=== PATIENT | female | born 1985 | race Caucasian/White ===

== ENCOUNTER 2016-04-11 07:53 | Emergency (ER) | payer OTHER ==
[~2016-04-11] VITALS: Ht 165.1 cm; Wt 95.6 kg
[2016-04-11 08:34] LABS: HEMATOCRIT 38.3 % (36.0-46.0); MCH 30.7 PG (29.0-34.0); MCV 87.6 FL (83-99); PLATELET COUNT 335 K/uL (156-360); RBC DIS.WIDTH-CV 12.1 % (11.8-14.6); RBC DIS.WIDTH-SD 37.7 % (39-53); RED BLOOD COUNT 4.37 M/uL (3.80-5.20); WHITE BLOOD COUNT 19.5 K/uL (4.1-10.2)
[2016-04-11 08:54] LABS: PTT 28.2 (25-32)
[2016-04-11 08:59] LABS: INFLUENZA A VIRAL ANTIGEN NEGATIVE; INFLUENZA B VIRAL ANTIGEN NEGATIVE
[2016-04-11 09:05] LABS: CHLORIDE 107 mEq/L (99-109); POTASSIUM 3.6 mEq/L (3.7-5.4); SODIUM 137 mEq/L (136-147)
[2016-04-11 09:07] LABS: GLUCOSE 114 mg/dL (70-99)
[2016-04-11 09:08] LABS: ANION GAP 11 MEQ/L (2-14)
[2016-04-11 09:09] LABS: TOTAL BILIRUBIN 0.6 mg/dL (0.0-1.0)
[2016-04-11 09:11] LABS: ALKALINE PHOSPHATASE 110 IU/L (3-129); GFR ESTIMATE (CALCULATED) > 59 mL/min/
[2016-04-11 09:12] LABS: UREA NITROGEN (BUN) 5 mg/dL (9-23)
[2016-04-11 09:14] LABS: LIPASE 11 U/L (1.0-51.0)
[2016-04-11] MEDS ORDERED: ZOFRAN ODT4 MG PO (10:33)
[2016-04-11 10:34] LABS: ADD MIUA? YES; BILIRUBIN NEGATIVE; BLOOD NEGATIVE; COLOR AMBER ((YELLOW)); GLUCOSE (STRIP) NEGATIVE; KETONES 80; LEUKOCYTES SMALL; NITRITE NEGATIVE; PROTEIN (STRIP) 30; SPECIFIC GRAVITY 1.027 (1.000-1.030); UROBILINOGEN 0.2 MG/DL (0.2-1.0)
[2016-04-11] MEDS ORDERED: CIPRO500 MG PO (10:47)
[2016-04-11 11:03] LABS: BACTERIA 1+ /HPF; EPITHELIAL CELLS 2+ /HPF; MUCUS 4+ /LPF; RED BLOOD CELLS 0-5 /HPF (0-5); UCUL ADDED? NO; WHITE BLOOD CELLS 0-5 /HPF (0-5)
[2016-04-11 11:17] VITALS: BP 125/79
== END 2016-04-11 11:20 | disposition home or self-care (01) ==
LOC: EME 07:53
PROVIDERS: Nurse Practitioner Family
DX: O21.9 Vomiting of pregnancy, unspecified (principal); O23.42 Unspecified infection of urinary tract in pregnancy, second trimester; O99.512 Diseases of the respiratory system complicating pregnancy, second trimester; J32.9 Chronic sinusitis, unspecified; J02.9 Acute pharyngitis, unspecified; O26.892 Other specified pregnancy related conditions, second trimester; R19.7 Diarrhea, unspecified; Z3A.15 15 weeks gestation of pregnancy
CPT/HCPCS: 80053; 81003; 83690; 85027; 85610; 85730; 87502; 99281; 99284; J2405; J7030

== ENCOUNTER 2016-09-18 01:52 | Inpatient (IN) | payer OTHER ==
[2016-09-18] VITALS (30 sets, daily range): BP systolic 88–145; BP diastolic 54–83
[~2016-09-18] VITALS: Ht 165.1 cm; Wt 98.0 kg
[~2016-09-18 01:52] MED LIST: CIPRO500 MG PO; ZOFRAN ODT4 MG PO
[2016-09-18 02:44] LABS: EOSINOPHIL (%) 0.6 % (0-5); EOSINOPHIL COUNT 0.1 K/uL (0-0.3); HEMATOCRIT 31.1 % (36.0-46.0); IMMATURE GRANULOCYTE (%) 0.6 % (0.0-0.7); IMMATURE GRANULOCYTE COUNT 0.1 K/uL; INSTRUMENT ABS NEUTROPHIL CT 7.2 K/uL; LYMPHOCYTE COUNT 2.1 K/uL (1.0-2.8); MCH 30.5 PG (29.0-34.0); MCHC 34.7 G/DL (30.0-36.0); MCV 87.9 FL (83-99); MEAN PLAT.VOLUME 9.3 uM^3 (9.5-12.4); MONOCYTE (%) 7.8 % (3-12); MONOCYTE COUNT 0.8 K/uL (0-0.8); NEUTROPHIL (%) 70.2 % (45-76); NEUTROPHIL COUNT 7.2 K/uL (1.8-6.4); PLATELET COUNT 345 K/uL (156-360); RBC DIS.WIDTH-CV 12.1 % (11.8-14.6); RBC DIS.WIDTH-SD 39.4 % (39-53); RED BLOOD COUNT 3.54 M/uL (3.80-5.20); WHITE BLOOD COUNT 10.2 K/uL (4.1-10.2)
[2016-09-18] MEDS ORDERED: ZOFRAN8 MG PO (03:25)
[2016-09-18] MEDS ORDERED: DICLEGIS DR 101 EACH PO (03:26)
[2016-09-18] MEDS ORDERED: FLONASE SENSIM9.9 ML BOTH NARES (03:28)
[2016-09-18] MEDS ORDERED: IBUPROFEN800 MG PO (16:38)
[2016-09-19 07:06] VITALS: BP 110/72
[2016-09-19 15:25] VITALS: BP 110/78
[2016-09-20 07:00] VITALS: BP 121/69
== END 2016-09-20 15:50 | disposition home or self-care (01) | DRG 775 ==
LOC: LDRP-OP 01:52 → 2WEST 01:53 → LDRP-OP 11-03 13:02
PROVIDERS: Nurse Practitioner
DX: O70.0 First degree perineal laceration during delivery (principal); O42.02 Full-term premature rupture of membranes, onset of labor within 24 hours of rupture; O99.214 Obesity complicating childbirth; E66.9 Obesity, unspecified; Z68.36 Body mass index [BMI] 36.0-36.9, adult; Z3A.37 37 weeks gestation of pregnancy; Z37.0 Single live birth
CPT/HCPCS: 80306 90; 85025; C1755; J2405; J3010; J7120

== ENCOUNTER 2016-09-22 05:01 | Emergency (ER) | payer OTHER ==
[~2016-09-22] VITALS: Ht 167.6 cm; Wt 98.6 kg
[~2016-09-22 05:01] MED LIST changes: +DICLEGIS DR 101 EACH PO; +FLONASE SENSIM9.9 ML BOTH NARES; +IBUPROFEN800 MG PO; +ZOFRAN8 MG PO
[2016-09-22 06:45] LABS: ADD MIUA? YES; BILIRUBIN NEGATIVE; BLOOD LARGE; COLOR YELLOW ((YELLOW)); GLUCOSE (STRIP) NEGATIVE; KETONES NEGATIVE; LEUKOCYTES TRACE; NITRITE NEGATIVE; PROTEIN (STRIP) 30; SPECIFIC GRAVITY 1.014 (1.000-1.030); UROBILINOGEN 0.2 MG/DL (0.2-1.0)
[2016-09-22 06:57] LABS: BACTERIA NONE SEEN /HPF; EPITHELIAL CELLS 1+ /HPF; MUCUS TRACE /LPF; UCUL ADDED? YES
[2016-09-22 08:03] VITALS: BP 134/96
== END 2016-09-22 08:04 | disposition home or self-care (01) ==
LOC: EME 05:01
PROVIDERS: Emergency Medicine
DX: O99.63 Diseases of the digestive system complicating the puerperium (principal); K59.00 Constipation, unspecified; G89.18 Other acute postprocedural pain; R31.9 Hematuria, unspecified; R00.0 Tachycardia, unspecified
CPT/HCPCS: 74022; 81003; 87086; 99281; 99285; J7030